=== PATIENT | male | born 1965 | race Caucasian/White ===

== ENCOUNTER 2016-12-17 10:47 | Emergency (ER) | payer OTHER ==
[~2016-12-17] VITALS: Ht 185.4 cm; Wt 96.2 kg
[2016-12-17 10:48] VITALS: BP 133/94
[2016-12-17] MEDS ORDERED: IBUP1TAB7 PO (10:59)
[2016-12-17] MEDS ORDERED: PERCOCET 5MG/325MG TAB PO ONE (11:30)
[2016-12-17] MEDS ORDERED: NORCOTAB PO (11:49)
[2016-12-17] MEDS ORDERED: CLEO300C2 PO (11:49)
== END 2016-12-17 11:59 | disposition home or self-care (01) ==
LOC: M ED 10:47
DX: K04.7 Periapical abscess without sinus (principal); F17.210 Nicotine dependence, cigarettes, uncomplicated